=== PATIENT | female | born 2000 | race Two or more races ===

== ENCOUNTER 2018-06-08 14:02 | Emergency (ER) | payer MEDICAID ==
[2018-06-08 15:15] VITALS: BP 105/66
--- NOTE | 2018-06-08 18:02 | NUR ---
Patient seen and assessed by provider.
== END 2018-06-08 18:03 | disposition home or self-care (01) ==
LOC: ER 14:02
DX: J02.9 Acute pharyngitis, unspecified (principal)
CPT/HCPCS: 87081; 87502; 87503; 87880; 99283

== ENCOUNTER 2018-10-14 18:53 | Emergency (ER) | payer MEDICAID ==
[~2018-10-14] VITALS: Ht 157.5 cm; Wt 50.0 kg
[2018-10-14] MEDS ORDERED: ondansetron/PF 4mg/2ml inj IV ONE (19:40)
[2018-10-14] MEDS ORDERED: normal saline 1000ML IV soln IVB ONE (19:40)
[2018-10-14] MEDS ORDERED: morphine 4 MG/ML inj SYRINge IV PRN (19:40)
[2018-10-14 19:51] LABS: BASOPHILS % (AUTO) 0.3 % (0-1); EOSINOPHILS # (AUTO) 0.1 X10'3 (0-0.9); HEMATOCRIT 38.4 % (35.0-45.0); HEMOGLOBIN 12.9 g/dl (12.0-16.0); LYMPHOCYTES # (AUTO) 0.9 X10'3 (1.1-4.8); LYMPHOCYTES % (AUTO) 8.4 % (21-51); MEAN CORPUSCULAR HEMOGLOBIN 30.2 PG (27.0-31.0); MEAN CORPUSCULAR HGB CONC 33.6 g/dL (33.0-36.5); MEAN CORPUSCULAR VOLUME 89.8 FL (78-98); MEAN PLATELET VOLUME 8.4 FL (7.4-10.4); MONOCYTES # (AUTO) 0.5 X10'3 (0-0.9); MONOCYTES % (AUTO) 4.5 % (2-12); NEUTROPHILS # (AUTO) 9.1 X10'3 (1.8-7.7); NEUTROPHILS % (AUTO) 85.8 % (42-75); PLATELET COUNT 277 X10'3 (140-440); RED BLOOD COUNT 4.27 X10'6 (4.20-5.60); RED CELL DISTRIBUTION WIDTH 12.5 % (11.5-14.5); WHITE BLOOD COUNT 10.6 X10'3 (4.5-11.0)
[2018-10-14 20:01] LABS: HCG SERUM QL NEGATIVE
[2018-10-14 20:05] LABS: ALANINE AMINOTRANSFERASE 27 U/L (12-78); ALBUMIN/GLOBULIN RATIO 1.1 (1.1-1.5); ALKALINE PHOSPHATASE 54 IU/L (20-180); ANION GAP 10 (8-16); BILIRUBIN,TOTAL 0.7 MG/DL (0.1-1.0); BLOOD UREA NITROGEN 10 MG/DL (7-18); BUN/CREATININE RATIO 13.2 (6.6-38.0); CHLORIDE 105 MMOL/L (99-107); CREATININE 0.76 MG/DL (0.40-0.90); GLUCOSE 95 MG/DL (70-104); POTASSIUM 3.6 MMOL/L (3.5-5.1); SODIUM 139 MMOL/L (135-145); TOTAL CARBON DIOXIDE 23.6 MMOL/L (24-32); TOTAL PROTEIN 7.8 G/DL (6.4-8.2); eGFR > 90 ML/MIN
[2018-10-14] MEDS ORDERED: iohexol 300mg/ml 100ml inj. ONE (20:09)
[2018-10-14 20:17] LABS: ASPARTATE AMINO TRANSFERASE 20 U/L (10-37)
[2018-10-14 21:02] VITALS: BP 124/60
== END 2018-10-14 21:04 | disposition home or self-care (01) ==
LOC: ER 18:53
DX: N94.6 Dysmenorrhea, unspecified (principal); R10.84 Generalized abdominal pain; R10.31 Right lower quadrant pain; F12.90 Cannabis use, unspecified, uncomplicated
CPT/HCPCS: 36415; 74177; 80053; 84703; 85025; 85610; 96374; 96375; 99284; J2270; J2405; J7030; Q9967